=== PATIENT | male | born 1960 | race Two or more races ===

== ENCOUNTER 2025-01-29 14:32 | Emergency (ER) | payer SELFPAY ==
[~2025-01-29] VITALS: Ht 175.3 cm; Wt 68.0 kg
[2025-01-29] MEDS ORDERED: IBUP-1490 PO (16:14)
[2025-01-29 16:51] VITALS: BP 112/69; TEMP 97.9; O2SAT 99
== END 2025-01-29 16:51 | disposition home or self-care (01) ==
LOC: ER 14:44
DX: S93.402A Sprain of unspecified ligament of left ankle, initial encounter (principal); S80.02XA Contusion of left knee, initial encounter; V43.12XA Car passenger injured in collision with other type car in nontraffic accident, initial encounter; Y93.89 Activity, other specified; Y92.488 Other paved roadways as the place of occurrence of the external cause; Y99.8 Other external cause status
CPT/HCPCS: 73564-TC; 73610-TC; 73630-TC